=== PATIENT | male | born 1990 | race Caucasian/White ===

== ENCOUNTER 2018-12-03 04:21 | Emergency (ER) | payer BC, OTHER ==
[~2018-12-03] VITALS: Ht 182.9 cm; Wt 102.8 kg
--- NOTE | 2018-12-03 04:37 | NUR ---
PT ABLE TO WALK TO ROOM WITHOUT ASSIST. PT PLACED IN GOWN GIVEN A WARM BLANKET AND AWAITING ERP AND ORDERS.
[2018-12-03 04:39] VITALS: BP 132/76
[2018-12-03] MEDS ORDERED: ONDANSETRON ODT 4 MG PO ONE (05:00)
[2018-12-03] MEDS ORDERED: GABAPENTIN 300 MG CAPSULE PO ONE (05:00)
[2018-12-03] MEDS ORDERED: GABAPENTIN 300 MG CAPSULE ONE (05:08)
[2018-12-03] MEDS ORDERED: ONDANSETRON ODT 4 MG ONE (05:08)
--- NOTE | 2018-12-03 05:11 | NUR ---
PT MEDICATED ORDERED AND T CT SCAN.
== END 2018-12-03 06:26 | disposition home or self-care (01) ==
LOC: ED 06:15
DX: G43.C1 Periodic headache syndromes in child or adult, intractable (principal)
CPT/HCPCS: 70450; 99284; Q0162